=== PATIENT | male | born 1980 | race Caucasian/White ===

== ENCOUNTER 2025-01-06 10:03 | Emergency (ER) | payer OTHER ==
[~2025-01-06] VITALS: Ht 165.1 cm; Wt 85.0 kg
[2025-01-06 10:38] LABS: KETONE, URINE AUTO RFX NEGATIVE (NEGATIVE); LEUKOCYTE ESTERASE UR AUTO RFX NEGATIVE (NEGATIVE); NITRITE, URINE AUTO RFX NEGATIVE (NEGATIVE); RBC, URINE AUTO RFX 1 /HPF (0-3); SQUAM EPITHELIAL CELL UR AURFX 0 /HPF (0-6); WBC, URINE AUTO RFX 0 /HPF (0-3)
[2025-01-06 11:53] LABS: Trichomonas vaginalis (AMP) NOT DETECTED (NEGATIVE)
[2025-01-06 12:17] LABS: GC DNA AMPLIFICATION NEGATIVE (NEGATIVE)
[2025-01-06] MEDS ORDERED: IBUP-1022 PO (13:06)
[2025-01-06] MEDS ORDERED: BACT800T5 PO (13:06)
[2025-01-06 13:29] VITALS: BP 130/87; TEMP 97.9; O2SAT 98
== END 2025-01-06 13:30 | disposition home or self-care (01) ==
LOC: M ED 10:03
DX: N50.811 Right testicular pain (principal); N50.89 Other specified disorders of the male genital organs; Z79.1 Long term (current) use of non-steroidal anti-inflammatories (NSAID); Z79.899 Other long term (current) drug therapy

== ENCOUNTER → 2025-09-20 | Outpatient (CLI) | payer OTHER ==
[~2025-09-20] MED LIST: BACT800T5 PO; IBUP600T42 PO
== END ==
LOC: M RAD 10:33
PROVIDERS: ATTEND Nurse Practitioner Family
DX: N50.819 Testicular pain, unspecified (principal)